=== PATIENT | female | born 1975 | race Caucasian/White ===

== ENCOUNTER 2016-12-22 09:35 | Emergency (ER) | payer MEDICAID ==
[~2016-12-22] VITALS: Ht 172.7 cm; Wt 65.3 kg
[2016-12-22] MEDS ORDERED: IV NS 1000 ML 1,000 ML IV ONE ×2 (09:45→12:00)
--- NOTE | 2016-12-22 09:50 | NUR ---
Dr Mcfadden at the bedside for eval and exam.
[2016-12-22 09:54] LABS: BASOPHILS # (AUTO) 0.2 K/uL (0.0-8.0); BASOPHILS % (AUTO) 1.6 % (0.0-2.0); EOSINOPHILS % (AUTO) 0.2 % (0.0-7.0); HEMATOCRIT 33.7 % (37-47); HEMOGLOBIN 10.8 G/DL (12.0-16.0); LYMPHOCYTES # (AUTO) 0.4 K/UL (0.8-4.8); LYMPHOCYTES % (AUTO) 3.8 % (20.5-51.5); MEAN CORPUSCULAR HEMOGLOBIN 27.8 UUG (27.0-31.0); MEAN CORPUSCULAR HGB CONC 32 g/dL (32.0-37.0); MEAN CORPUSCULAR VOLUME 86.4 FL (81.0-99.0); MONOCYTES # (AUTO) 0.3 K/UL (0.1-1.30); MONOCYTES % (AUTO) 3.3 % (0.0-11.0); NEUTROPHILS # (AUTO) 8.7 K/UL (1.8-8.9); NEUTROPHILS % (AUTO) 91.1 % (38.5-71.5); PLATELET COUNT (AUTO) 242 K/UL (150-450); WHITE BLOOD COUNT (AUTO) 9.6 K/UL (4.0-11.2)
[2016-12-22 10:03] LABS: CREATININE 0.8 mg/dL (0.6-1.3); POTASSIUM 3.5 mmol/L (3.5-5.1)
[2016-12-22 10:09] LABS: BILIRUBIN,TOTAL 0.4 mg/dL (0.2-1.0); TOTAL PROTEIN, SERUM 7.2 g/dL (6.4-8.2)
[2016-12-22 10:27] LABS: BAND % (MANUAL) 24 % (0-10); LYMPHOCYTES % (MANUAL) 4 % (20-40); MONOCYTES % (MANUAL) 2 % (2-10); NEUTROPHILS % (MANUAL) 70 % (42-75)
--- NOTE | 2016-12-22 10:37 | NUR ---
Patient is resting comfortably in bed with eyes closed, NAD noted.
--- NOTE | 2016-12-22 11:33 | NUR ---
Pt walked yo bathroom and provided dirty urine, unable to send for testing, ERMD aware.
[2016-12-22 14:26] VITALS: BP 105/58
--- NOTE | 2016-12-22 14:26 | NUR ---
Patient given written and verbal discharge instructions. Patient verbalizes understanding of instructions. Patient is ambulatory with steady gait. Refuses offer of long term placement. Patient given list of available shelters in surrounding area.
== END 2016-12-22 14:27 | disposition home or self-care (01) ==
LOC: ER 09:35
DX: S00.81XA Abrasion of other part of head, initial encounter (principal); E86.9 Volume depletion, unspecified; W07.XXXA Fall from chair, initial encounter; Y93.89 Activity, other specified; Y92.9 Unspecified place or not applicable; Y99.9 Unspecified external cause status
CPT/HCPCS: 36415; 70030-TC; 71010; 85025; 85610; 93005; A4663; J7030

== ENCOUNTER 2017-03-26 18:52 | Emergency (ER) | payer MEDICAID ==
[~2017-03-26] VITALS: Ht 172.7 cm; Wt 68.0 kg
--- NOTE | 2017-03-26 19:04 | NUR ---
PTM ELOPED, DECIDED NOT TO BE EVALATED. TOOK ALL BELONGINGS
== END 2017-03-26 19:05 | disposition left against medical advice (07) ==
LOC: ER 18:56
DX: Z53.21 Procedure and treatment not carried out due to patient leaving prior to being seen by health care provider (principal)
CPT/HCPCS: A4663

== ENCOUNTER 2017-07-20 11:56 | Emergency (ER) | payer SELFPAY ==
[~2017-07-20] VITALS: Ht 172.7 cm; Wt 68.0 kg
[2017-07-20] MEDS ORDERED: predniSONE 50 MG TABLET PO ONE (13:15)
[2017-07-20] MEDS ORDERED: diphenhydrAMINE 25 MG/10 ML UDC PO ONE (13:15)
[2017-07-20] MEDS ORDERED: MAG HYDROX/AL HYDROX/SIMETH 30 ML LIQUID UDC PO ONE (13:15)
[2017-07-20] MEDS ORDERED: MAG HYDROX/AL HYDROX/SIMETH 30 ML LIQUID UDC ONE (13:19)
[2017-07-20] MEDS ORDERED: diphenhydrAMINE 25 MG/10 ML UDC ONE (13:19)
[2017-07-20] MEDS ORDERED: predniSONE 50 MG TABLET ONE (13:19)
--- NOTE | 2017-07-20 13:25 | NUR ---
Patient discharged to home in stable conditon. Written and verbal after care instructions given. Patient verbalizes understanding of instructions. Stressed follow up or return to ER for worsening s/s.
== END 2017-07-20 13:28 | disposition home or self-care (01) ==
LOC: ER 12:00
DX: J02.9 Acute pharyngitis, unspecified (principal); F17.210 Nicotine dependence, cigarettes, uncomplicated; Z59.0 Homelessness
CPT/HCPCS: A4663; J7512; Q0163

== ENCOUNTER 2018-06-05 12:21 | Emergency (ER) | payer SELFPAY ==
[~2018-06-05] VITALS: Ht 172.7 cm; Wt 70.3 kg
--- NOTE | 2018-06-05 13:00 | NUR ---
Patient eloped from facility. ER physician notified.
== END 2018-06-05 13:03 | disposition left against medical advice (07) ==
LOC: EDBD → ER 12:21
DX: Z53.21 Procedure and treatment not carried out due to patient leaving prior to being seen by health care provider (principal)
CPT/HCPCS: A4663

== ENCOUNTER 2018-06-05 16:04 | Emergency (ER) | payer MEDICAID ==
[~2018-06-05] VITALS: Ht 172.7 cm; Wt 72.6 kg
--- NOTE | 2018-06-05 16:41 | NUR ---
PT NOT SURE ABOUT WANTING TO BE SEEN OR NOT. ASKING TO THINK IT OVER FIRST.
--- NOTE | 2018-06-05 18:37 | NUR ---
Dr Mullins at the bedside for MSE.
[2018-06-05] MEDS ORDERED: OLANZAPINE 5 MG TABLET ONE (18:43)
[2018-06-05] MEDS ORDERED: OLANZAPINE 5 MG TABLET PO ONE (18:45)
[2018-06-05 19:04] VITALS: BP 112/70
--- NOTE | 2018-06-05 19:26 | NUR ---
Patient given written and verbal discharge instructions. Patient verbalizes understanding of instructions. Patient is ambulatory with steady gait. Refuses offer of jail placement. Patient given list of available shelters in surrounding area. Provided pt dinner.
== END 2018-06-05 19:27 | disposition home or self-care (01) ==
LOC: EDBD 16:04 → ER 16:04
DX: F29 Unspecified psychosis not due to a substance or known physiological condition (principal)
CPT/HCPCS: A4663

== ENCOUNTER 2019-04-29 15:08 | Emergency (ER) | payer MEDICAID ==
[~2019-04-29] VITALS: Ht 172.7 cm; Wt 72.6 kg
--- NOTE | 2019-04-29 17:30 | NUR ---
PT WAS NOT FOUND IN ER WAITING ROOM.
== END 2019-04-29 18:20 | disposition left against medical advice (07) ==
LOC: ER 15:13
DX: Z53.21 Procedure and treatment not carried out due to patient leaving prior to being seen by health care provider (principal)
CPT/HCPCS: A4663

== ENCOUNTER 2019-07-17 13:54 | Emergency (ER) | payer MEDICAID ==
[~2019-07-17] VITALS: Ht 172.7 cm; Wt 72.6 kg
--- NOTE | 2019-07-17 14:06 | NUR ---
PT IS IN ROOM #2B. DR DONALD EVALUATED THE PT.
[2019-07-17] MEDS ORDERED: risperiDONE 1 MG TABLET PO STA (14:13)
--- NOTE | 2019-07-17 14:53 | NUR ---
PT WAS D/C'dDO HOME. D/C INSTRUCTIONS GIVEN TO THE PT.
[2019-07-17 14:54] VITALS: BP 139/78
== END 2019-07-17 14:55 | disposition home or self-care (01) ==
LOC: ER 13:54
DX: F29 Unspecified psychosis not due to a substance or known physiological condition (principal); F17.200 Nicotine dependence, unspecified, uncomplicated; Z60.2 Problems related to living alone
CPT/HCPCS: A4663